=== PATIENT | female | born 1940 | race Caucasian/White ===

== ENCOUNTER 2016-06-18 22:12 | Observation (INO) | payer MEDICARE ==
[~2016-06-18] VITALS: Ht 160 cm; Wt 69.5 kg
[~2016-06-18 22:12] MED LIST: CARAFATE1 GM PO; CIPROFLOXACN500 MG PO; FLORASTOR250 M1 PO; HYDROCO/APAP1 TA9 PO; LATANOPROST0.005 % OU; LEVAQUIN750 MG PO; LOPRESSOR50 MG PO; METOPROL TAR50 MG PO; METRONIDAZOL500 MG PO; PERI-COLACE1 TAB PO; PRAVASTATIN40 MG PO; PROTONIX40 M2 PO; ULTRAM50 M1 PO; [UNRECOGNIZED DRUG - REMARK]
[2016-06-18 22:58] LABS: HEMOGLOBIN 13.3 g/dl (12.0-16.0); IMMATURE GRANULOCYTES 0.7 % (0.0-1.0); MEAN CELL VOLUME 82.3 fL CALC (80.0-100.0); MEAN CORPUSCULAR HGB 26.7 pG CALC (26.0-32.0); MEAN CORPUSCULAR HGB CONC 32.4 g/L CALC (32.0-36.0); NEUT# 10.61 thou/uL (2.00-7.15); RED BLOOD COUNT 4.98 mill/uL (4.20-5.60)
[2016-06-18 23:12] LABS: ALBUMIN 3.6 g/dL (3.2-5.0); ALKALINE PHOSPHATASE 302 u/l (38-126); ANION GAP 19 (6-22 (CALC)); BILIRUBIN, TOTAL 0.5 mg/dL (0.0-1.4); BUN 10 mg/dL (8-23); BUN/CREATININE RATIO 14 (12-20 (CALC)); CALCIUM 9.4 mg/dL (8.4-10.2); CARBON DIOXIDE 26 mmol/l (22-30); CHLORIDE 103 mmol/l (95-108); CREATININE 0.7 mg/dL (0.5-1.0); GFR > 60 ML/MIN (>=60 (CALC)); GFR FOR AFR.AMER. > 60 ML/MIN (>=60 (CALC)); GLUCOSE 148 mg/dL (82-115); POTASSIUM 3.3 mmol/l (3.5-5.1); SGOT/AST 55 u/l (9-36); SGPT/ALT 48 u/l (11-66); SODIUM 144 mmol/l (137-146); TOTAL PROTEIN 7.8 g/dL (6.3-8.2)
[2016-06-18 23:24] LABS: MYOGLOBIN 66 ng/mL (0 - 62)
[2016-06-19 01:15] VITALS: BP 145/76
[2016-06-19 05:05] VITALS: BP 116/82
[2016-06-19 07:57] VITALS: BP 136/73
[2016-06-19 14:00] VITALS: BP 138/65
== END 2016-06-19 14:10 | disposition home or self-care (01) ==
LOC: ENPENDDIS → ED 22:12 → ED-I 06-19 00:29 → ED 06-19 00:34 → MS2 06-19 00:35
PROVIDERS: ADMIT Internal Medicine; ATTEND Internal Medicine
PROC: 0DB98ZX Excision of Duodenum, Via Natural or Artificial Opening Endoscopic, Diagnostic (ICD-10-PCS; principal; 2016-06-19)
PROC: 0DBH8ZX Excision of Cecum, Via Natural or Artificial Opening Endoscopic, Diagnostic (ICD-10-PCS; 2016-06-19)
PROC: 0DBK8ZX Excision of Ascending Colon, Via Natural or Artificial Opening Endoscopic, Diagnostic (ICD-10-PCS; 2016-06-19)
PROC: 0DBL8ZX Excision of Transverse Colon, Via Natural or Artificial Opening Endoscopic, Diagnostic (ICD-10-PCS; 2016-06-19)
PROC: 0DBP8ZX Excision of Rectum, Via Natural or Artificial Opening Endoscopic, Diagnostic (ICD-10-PCS; 2016-06-19)
PROC: 0DBN8ZX Excision of Sigmoid Colon, Via Natural or Artificial Opening Endoscopic, Diagnostic (ICD-10-PCS; 2016-06-19)
DX: E86.0 Dehydration (principal); E86.1 Hypovolemia; R19.7 Diarrhea, unspecified; R10.32 Left lower quadrant pain; R63.4 Abnormal weight loss; K64.4 Residual hemorrhoidal skin tags; K57.30 Diverticulosis of large intestine without perforation or abscess without bleeding; K64.8 Other hemorrhoids; D12.2 Benign neoplasm of ascending colon; D12.0 Benign neoplasm of cecum; D12.3 Benign neoplasm of transverse colon; D12.5 Benign neoplasm of sigmoid colon; D12.8 Benign neoplasm of rectum; K63.89 Other specified diseases of intestine; K22.2 Esophageal obstruction; K29.70 Gastritis, unspecified, without bleeding; K44.9 Diaphragmatic hernia without obstruction or gangrene; R55 Syncope and collapse; G91.9 Hydrocephalus, unspecified; I25.10 Atherosclerotic heart disease of native coronary artery without angina pectoris; I10 Essential (primary) hypertension; E78.00 Pure hypercholesterolemia, unspecified; R74.8 Abnormal levels of other serum enzymes; Z98.2 Presence of cerebrospinal fluid drainage device

== ENCOUNTER 2016-08-01 18:03 | Emergency (ER) | payer MEDICARE ==
[~2016-08-01] VITALS: Ht 160 cm; Wt 76.5 kg
[2016-08-01 19:36] LABS: HEMATOCRIT 38.7 % (37.0-47.0); HEMOGLOBIN 12.3 g/dl (12.0-16.0); IMMATURE GRANULOCYTES 0.7 % (0.0-1.0); MEAN CELL VOLUME 81.6 fL CALC (80.0-100.0); MEAN CORPUSCULAR HGB 25.9 pG CALC (26.0-32.0); MEAN CORPUSCULAR HGB CONC 31.8 g/L CALC (32.0-36.0); NEUT# 15.49 thou/uL (2.00-7.15); RED BLOOD COUNT 4.74 mill/uL (4.20-5.60); RED CELL DISTRI WIDTH 16.4 % (11.5-15.5)
[2016-08-01 19:45] LABS: ALBUMIN 3.2 g/dL (3.2-5.0); ALKALINE PHOSPHATASE 294 u/l (38-126); ANION GAP 16 (6-22 (CALC)); BILIRUBIN, TOTAL 2.3 mg/dL (0.0-1.4); BUN 14 mg/dL (8-23); BUN/CREATININE RATIO 23 (12-20 (CALC)); CALCIUM 8.9 mg/dL (8.4-10.2); CARBON DIOXIDE 26 mmol/l (22-30); CHLORIDE 101 mmol/l (95-108); CREATININE 0.6 mg/dL (0.5-1.0); GFR > 60 ML/MIN (>=60 (CALC)); GFR FOR AFR.AMER. > 60 ML/MIN (>=60 (CALC)); GLUCOSE 148 mg/dL (82-115); POTASSIUM 3.6 mmol/l (3.5-5.1); SGOT/AST 106 u/l (9-36); SGPT/ALT 72 u/l (11-66); SODIUM 139 mmol/l (137-146)
[2016-08-01 19:57] LABS: MYOGLOBIN 23 ng/mL (0 - 62)
[2016-08-01 21:17] VITALS: BP 118/64
[2016-08-01] MEDS ORDERED: METRONIDAZOL500 MG PO (21:20)
[2016-08-01] MEDS ORDERED: Levaquin PO (21:20)
== END 2016-08-01 21:19 | disposition left against medical advice (07) ==
LOC: ED 18:03
PROVIDERS: Emergency Medicine
DX: R50.9 Fever, unspecified (principal); D72.829 Elevated white blood cell count, unspecified; K75.9 Inflammatory liver disease, unspecified; I25.10 Atherosclerotic heart disease of native coronary artery without angina pectoris; I10 Essential (primary) hypertension; E78.00 Pure hypercholesterolemia, unspecified; G91.9 Hydrocephalus, unspecified; R94.31 Abnormal electrocardiogram [ECG] [EKG]; Z98.2 Presence of cerebrospinal fluid drainage device; Z91.19 Patient's noncompliance with other medical treatment and regimen

== ENCOUNTER 2016-10-07 22:17 | Inpatient (IN) | payer MEDICARE ==
[~2016-10-07] VITALS: Ht 160 cm; Wt 68.5 kg
[~2016-10-07 22:17] MED LIST changes: +Levaquin PO
[2016-10-07 23:09] LABS: HEMATOCRIT 36.8 % (37.0-47.0); HEMOGLOBIN 11.4 g/dl (12.0-16.0); IMMATURE GRANULOCYTES 0.9 % (0.0-1.0); MEAN CELL VOLUME 82.1 fL CALC (80.0-100.0); MEAN CORPUSCULAR HGB 25.4 pG CALC (26.0-32.0); NEUT# 16.17 thou/uL (2.00-7.15); RED BLOOD COUNT 4.48 mill/uL (4.20-5.60); RED CELL DISTRI WIDTH 18.9 % (11.5-15.5)
[2016-10-07 23:17] LABS: ALBUMIN 2.8 g/dL (3.2-5.0); ALKALINE PHOSPHATASE 480 u/l (38-126); ANION GAP 11 (6-22 (CALC)); BILIRUBIN, TOTAL 1.1 mg/dL (0.0-1.4); BUN 13 mg/dL (8-23); BUN/CREATININE RATIO 28 (12-20 (CALC)); CALCIUM 8.2 mg/dL (8.4-10.2); CARBON DIOXIDE 35 mmol/l (22-30); CHLORIDE 97 mmol/l (95-108); CREATININE 0.5 mg/dL (0.5-1.0); GFR > 60 ML/MIN (>=60 (CALC)); GFR FOR AFR.AMER. > 60 ML/MIN (>=60 (CALC)); GLUCOSE 175 mg/dL (82-115); POTASSIUM 2.5 mmol/l (3.5-5.1); SGOT/AST 266 u/l (9-36); SGPT/ALT 122 u/l (11-66); SODIUM 140 mmol/l (137-146); TOTAL PROTEIN 6.2 g/dL (6.3-8.2)
[2016-10-08 01:35] VITALS: BP 132/84
[2016-10-08 03:07] LABS: URINE BILIRUBIN - DIPSTICK NEGATIVE (NEGATIVE); URINE BLOOD DIPSTICK NEGATIVE (NEGATIVE); URINE CLARITY CLEAR; URINE COLOR YELLOW; URINE GLUCOSE - DIPSTICK NEGATIVE (NEGATIVE); URINE KETONE NEGATIVE (NEGATIVE); URINE LEUK ESTERASE TRACE (NEGATIVE); URINE NITRITE - DIPSTICK NEGATIVE (Negative); URINE PH 6.5 (4.5-8.0); URINE PROTEIN - DIPSTICK NEGATIVE (NEG-TRACE); URINE SPECIFIC GRAVITY <=1.005
[2016-10-08 04:48] VITALS: BP 134/78
[2016-10-08 05:24] LABS: HEMATOCRIT 35.5 % (37.0-47.0); IMMATURE GRANULOCYTES 0.9 % (0.0-1.0); MEAN CELL VOLUME 83.1 fL CALC (80.0-100.0); MEAN CORPUSCULAR HGB 25.8 pG CALC (26.0-32.0); NEUT# 13.04 thou/uL (2.00-7.15); RED BLOOD COUNT 4.27 mill/uL (4.20-5.60)
[2016-10-08 05:44] LABS: ANION GAP 10 (6-22 (CALC)); BUN 12 mg/dL (8-23); BUN/CREATININE RATIO 22 (12-20 (CALC)); CALCIUM 7.9 mg/dL (8.4-10.2); CARBON DIOXIDE 37 mmol/l (22-30); CHLORIDE 100 mmol/l (95-108); CREATININE 0.5 mg/dL (0.5-1.0); GFR > 60 ML/MIN (>=60 (CALC)); GFR FOR AFR.AMER. > 60 ML/MIN (>=60 (CALC)); GLUCOSE 114 mg/dL (82-115); POTASSIUM 2.9 mmol/l (3.5-5.1); SODIUM 144 mmol/l (137-146)
[2016-10-08 08:22] VITALS: BP 114/55
[2016-10-08 12:44] VITALS: BP 144/71; BP 165/88
[2016-10-08 17:28] LABS: ANION GAP 12 (6-22 (CALC)); BUN 9 mg/dL (8-23); BUN/CREATININE RATIO 22 (12-20 (CALC)); CALCIUM 8.3 mg/dL (8.4-10.2); CARBON DIOXIDE 31 mmol/l (22-30); CHLORIDE 105 mmol/l (95-108); CREATININE 0.4 mg/dL (0.5-1.0); GFR > 60 ML/MIN (>=60 (CALC)); GFR FOR AFR.AMER. > 60 ML/MIN (>=60 (CALC)); GLUCOSE 90 mg/dL (82-115); POTASSIUM 3.9 mmol/l (3.5-5.1); SODIUM 144 mmol/l (137-146)
[2016-10-08 17:57] VITALS: BP 175/95
[2016-10-08 21:10] VITALS: BP 137/92
[2016-10-09 00:25] VITALS: BP 170/71
[2016-10-09 03:47] VITALS: BP 150/85
[2016-10-09 05:26] LABS: ANION GAP 10 (6-22 (CALC)); BUN 9 mg/dL (8-23); BUN/CREATININE RATIO 23 (12-20 (CALC)); CALCIUM 8.2 mg/dL (8.4-10.2); CARBON DIOXIDE 29 mmol/l (22-30); CHLORIDE 108 mmol/l (95-108); CREATININE 0.4 mg/dL (0.5-1.0); GFR > 60 ML/MIN (>=60 (CALC)); GFR FOR AFR.AMER. > 60 ML/MIN (>=60 (CALC)); GLUCOSE 143 mg/dL (82-115); MAGNESIUM 1.8 mg/dL (1.6-2.3); SODIUM 143 mmol/l (137-146)
[2016-10-09 05:32] LABS: HEMATOCRIT 35.4 % (37.0-47.0); IMMATURE GRANULOCYTES 0.7 % (0.0-1.0); MEAN CELL VOLUME 83.1 fL CALC (80.0-100.0); MEAN CORPUSCULAR HGB 25.8 pG CALC (26.0-32.0); MEAN CORPUSCULAR HGB CONC 31.1 g/L CALC (32.0-36.0); NEUT# 16.13 thou/uL (2.00-7.15); RED BLOOD COUNT 4.26 mill/uL (4.20-5.60)
[2016-10-09 08:01] VITALS: BP 151/78
[2016-10-09 09:36] LABS: HEMATOCRIT 33.3 % (37.0-47.0); HEMOGLOBIN 10.2 g/dl (12.0-16.0); MEAN CELL VOLUME 83.5 fL CALC (80.0-100.0); MEAN CORPUSCULAR HGB 25.6 pG CALC (26.0-32.0); MEAN CORPUSCULAR HGB CONC 30.6 g/L CALC (32.0-36.0); RED BLOOD COUNT 3.99 mill/uL (4.20-5.60); RED CELL DISTRI WIDTH 18.9 % (11.5-15.5)
[2016-10-09 09:50] LABS: ALBUMIN 2.3 g/dL (3.2-5.0); ALKALINE PHOSPHATASE 328 u/l (38-126); ANION GAP 11 (6-22 (CALC)); BILIRUBIN, TOTAL 1.9 mg/dL (0.0-1.4); BUN 9 mg/dL (8-23); BUN/CREATININE RATIO 24 (12-20 (CALC)); CALCIUM 8.1 mg/dL (8.4-10.2); CARBON DIOXIDE 29 mmol/l (22-30); CHLORIDE 108 mmol/l (95-108); CREATININE 0.4 mg/dL (0.5-1.0); GFR > 60 ML/MIN (>=60 (CALC)); GFR FOR AFR.AMER. > 60 ML/MIN (>=60 (CALC)); GLUCOSE 141 mg/dL (82-115); POTASSIUM 3.7 mmol/l (3.5-5.1); SGOT/AST 176 u/l (9-36); SGPT/ALT 88 u/l (11-66); SODIUM 144 mmol/l (137-146); TOTAL PROTEIN 5.5 g/dL (6.3-8.2)
[2016-10-09 11:39] VITALS: BP 151/62
[2016-10-09 15:26] VITALS: BP 159/81
[2016-10-09 19:40] VITALS: BP 147/83
[2016-10-10] VITALS: BP 141/76
[2016-10-10 05:08] VITALS: BP 153/84
[2016-10-10 06:07] LABS: HEMATOCRIT 33.7 % (37.0-47.0); HEMOGLOBIN 10.4 g/dl (12.0-16.0); IMMATURE GRANULOCYTES 0.7 % (0.0-1.0); MEAN CELL VOLUME 83.8 fL CALC (80.0-100.0); MEAN CORPUSCULAR HGB 25.9 pG CALC (26.0-32.0); MEAN CORPUSCULAR HGB CONC 30.9 g/L CALC (32.0-36.0); NEUT# 14.88 thou/uL (2.00-7.15); RED BLOOD COUNT 4.02 mill/uL (4.20-5.60); RED CELL DISTRI WIDTH 19.2 % (11.5-15.5)
[2016-10-10 06:33] LABS: ANION GAP 12 (6-22 (CALC)); BUN 11 mg/dL (8-23); BUN/CREATININE RATIO 24 (12-20 (CALC)); CALCIUM 8.4 mg/dL (8.4-10.2); CARBON DIOXIDE 27 mmol/l (22-30); CHLORIDE 110 mmol/l (95-108); CREATININE 0.4 mg/dL (0.5-1.0); GFR > 60 ML/MIN (>=60 (CALC)); GFR FOR AFR.AMER. > 60 ML/MIN (>=60 (CALC)); GLUCOSE 129 mg/dL (82-115); POTASSIUM 3.5 mmol/l (3.5-5.1); SODIUM 145 mmol/l (137-146)
[2016-10-10 09:01] VITALS: BP 132/67
[2016-10-10] MEDS ORDERED: METRONIDAZOL500 MG PO (10:58)
[2016-10-10] MEDS ORDERED: LEVAQUIN750 M1 PO (10:58)
[2016-10-10 11:38] VITALS: BP 137/69
== END 2016-10-10 14:53 | disposition hospice, home (50) | DRG 844 ==
LOC: ENPENDDIS → ED 22:17 → ED-I 23:00 → ED 10-08 00:22 → MS2 10-08 00:23
PROVIDERS: Emergency Medicine; Internal Medicine; Nurse Practitioner Family; ADMIT Internal Medicine; ATTEND Internal Medicine
DX: C7A.8 Other malignant neuroendocrine tumors (principal); G91.9 Hydrocephalus, unspecified; C7B.8 Other secondary neuroendocrine tumors; R18.8 Other ascites; E86.0 Dehydration; Z51.5 Encounter for palliative care; I09.9 Rheumatic heart disease, unspecified; I10 Essential (primary) hypertension; I25.10 Atherosclerotic heart disease of native coronary artery without angina pectoris; E78.5 Hyperlipidemia, unspecified; E87.6 Hypokalemia; Z95.5 Presence of coronary angioplasty implant and graft; Z98.2 Presence of cerebrospinal fluid drainage device; Z87.891 Personal history of nicotine dependence
CPT/HCPCS: J1956; Q9967